=== PATIENT | female | born 1955 | race American Indian/Alaskan Native ===

== ENCOUNTER 2019-10-16 09:15 | Emergency (ER) | payer SELFPAY ==
[2019-10-16 09:29] VITALS: BP 152/97
--- NOTE | 2019-10-16 10:32 | Emergency Department Report ---
ED ENT HPI - General Chief complaint: Nosebleed Stated complaint: NOSEBLEED Time Seen by Provider: 10/16/19 09:56 Source: patient Mode of arrival: Wheelchair Limitations: No Limitations - History of Present Illness Initial comments: This is a 63-year-old female who presents to ED complaining of left-sided nosebleed that began this morning. Patient states last week and she went up to [place] and then climbed up to the [place] and was severe for the whole day for prevention. Patient states couple of days after she had a short episode of a nosebleed. Patient states that 2 days she had a short episode of a nosebleed which resolved. Patient states today this morning after she had woken now she started experiencing left-sided nosebleed that lasted much longer than the previous ones. Patient states she does take a baby aspirin a day due to her history of hypertension along with her blood pressure medication. MD complaint: epistaxis Context-Epistaxis: aspirin use - Related Data Previous Rx's Medication Instructions Recorded Last Taken Type Oxymetazoline 0.05% [Vicks Sinex] 1 spray NS BID #1 bottle 10/16/19 Unknown Rx Allergies Allergy/AdvReac Type Severity Reaction Status Date / Time No Known Allergies Allergy Unverified 10/16/19 09:28 ED Dental HPI - General Chief complaint: Nosebleed Stated complaint: NOSEBLEED Time Seen by Provider: 10/16/19 09:56 Source: patient Mode of arrival: Wheelchair Limitations: No Limitations - Related Data Previous Rx's Medication Instructions Recorded Last Taken Type Oxymetazoline 0.05% [Vicks Sinex] 1 spray NS BID #1 bottle 10/16/19 Unknown Rx Allergies Allergy/AdvReac Type Severity Reaction Status Date / Time No Known Allergies Allergy Unverified 10/16/19 09:28 ED Review of Systems ROS: Stated complaint: NOSEBLEED Other details as noted in HPI Comment: All other systems reviewed and negative ED Past Medical Hx - Past Medical History Previous Medical History?: Yes Hx Hypertension: Yes - Surgical History Additional Surgical History: Cardiac pacemaker - Medications Home Medications: Home Medications Medication Instructions Recorded Confirmed Last Taken Type Oxymetazoline 0.05% [Vicks Sinex] 1 spray NS BID #1 bottle 10/16/19 Unknown Rx ED Physical Exam - General Limitations: No Limitations General appearance: alert, in no apparent distress - Head Head exam: Present: atraumatic, normocephalic - Eye Eye exam: Present: normal appearance, PERRL Pupils: Present: normal accommodation - ENT ENT exam: Present: mucous membranes moist - Expanded ENT Exam Expanded Mouth exam: Present: normal external inspection, tongue normal, other (no acute nasal bleed, dried blood seen in nostrils. Nares are pink and moist, nonerythematous no bleeding noted) Teeth exam: Present: normal inspection Throat exam: Positive: normal inspection, other (no bleeding, airway clear) - Neck Neck exam: Present: normal inspection, full ROM - Respiratory Respiratory exam: Present: normal lung sounds bilaterally. Absent: respiratory distress - Cardiovascular Cardiovascular Exam: Present: regular rate, normal rhythm. Absent: systolic murmur, diastolic murmur, rubs, gallop - GI/Abdominal GI/Abdominal exam: Present: soft, normal bowel sounds - Extremities Exam Extremities exam: Present: normal inspection - Back Exam Back exam: Present: normal inspection - Neurological Exam Neurological exam: Present: alert, oriented X3 - Psychiatric Psychiatric exam: Present: normal affect, normal mood - Skin Skin exam: Present: warm, dry, intact, normal color. Absent: rash ED Course Vital Signs 10/16/19 09:28 Temperature 98.9 F Pulse Rate 79 Respiratory 16 Rate Blood Pressure 152/97 [Right] O2 Sat by Pulse 97 Oximetry ED Medical Decision Making - Medical Decision Making 63 year-old female presents with left nostril epistaxis. ED course: Patient had no bleeding episode a during ED stay. Discussed with a sharp proper techniques to stop the nosebleeds. Discussed with mother to call ENT doctor as referred. I discussed with the patient to stop taking baby aspirin for the next couple of days Discussed with patient and daughter to return if the nosebleed episodes returned without stopping to return to ED Discussed so medication of nasal spray to decrease episodes. Patient's mother verbalizes that she understands and will follow up with the ENT specialist. Vital signs are stable. Patient is in no acute respiratory distress Critical care attestation.: If time is entered above; I have spent that time in minutes in the direct care of this critically ill patient, excluding procedure time. ED Disposition Clinical Impression: Anterior epistaxis Disposition: DC-01 TO HOME OR SELFCARE Is pt being admited?: No Does the pt Need Aspirin: No Condition: Stable Instructions: Epistaxis (ED) Additional Instructions: Make sure to follow up with the primary care physician as discussed. Take all your medications as you've been prescribed. If you have any worsening symptoms or develop new symptoms please return to ED immediately. Prescriptions: Oxymetazoline 0.05% [Vicks Sinex] 1 spray NS BID #1 bottle Referrals: CHIOMA GUILLORY MD [Staff Physician] - 3-5 Days Forms: Accompanied Note, Work/School Release Form(ED) Time of Disposition: 10:48
== END 2019-10-16 11:00 | disposition home or self-care (01) ==
LOC: ED 09:15
DX: R04.0 Epistaxis (principal); I10 Essential (primary) hypertension; Z98.890 Other specified postprocedural states; Z79.899 Other long term (current) drug therapy